=== PATIENT | female | born 1960 | race Caucasian/White ===

== ENCOUNTER 2023-04-12 08:48 | Day surgery (SDC) | payer OTHER ==
[2023-04-12] MEDS ORDERED: fentaNYL citrate 0.05 MG/ML VIAL ONE (09:40)
[2023-04-12] MEDS ORDERED: LIDOCAINE 2% 100 MG/5 ML UJET TP ONE (09:40)
[2023-04-12] MEDS ORDERED: MIDAZOLAM 5 MG/5 ML VIAL ONE (09:40)
== END 2023-04-12 11:49 | disposition home or self-care (01) ==
LOC: MMU 08:48 → MDS 08:48
PROVIDERS: ATTEND Internal Medicine Gastroenterology
DX: Z12.11 Encounter for screening for malignant neoplasm of colon (principal); K57.30 Diverticulosis of large intestine without perforation or abscess without bleeding; I10 Essential (primary) hypertension; E11.9 Type 2 diabetes mellitus without complications; E78.00 Pure hypercholesterolemia, unspecified; Z88.0 Allergy status to penicillin; Z79.4 Long term (current) use of insulin; Z79.899 Other long term (current) drug therapy
CPT/HCPCS: 45378; 82948; J3010; J2250